=== PATIENT | male | born 1995 | race Caucasian/White ===

== ENCOUNTER 2016-10-02 15:53 | Emergency (ER) | payer SELFPAY ==
[~2016-10-02] VITALS: Wt 74.8 kg
[2016-10-02] MEDS ORDERED: VIBRAMYCIN100 MG PO (17:44)
== END 2016-10-02 19:43 | disposition home or self-care (01) ==
LOC: ED 15:53
DX: Z20.2 Contact with and (suspected) exposure to infections with a predominantly sexual mode of transmission (principal)

== ENCOUNTER 2016-10-26 16:08 | Emergency (ER) | payer SELFPAY ==
[~2016-10-26] VITALS: Wt 77.1 kg
[~2016-10-26 16:08] MED LIST: VIBRAMYCIN100 MG PO
[2016-10-26 16:27] LABS: BASO % 0.3 % (0.0-1.0); EOS # 0.3 10*3/uL (0.0-0.4); EOS % 2.2 % (1.0-4.0); HEMOGLOBIN 15.1 g/dl (14.0-18.0); LYMPH # 2.7 10*3/uL (1.3-4.4); LYMPH % 22.9 % (27.0-41.0); MEAN CORPUSCULAR HGB 30.2 pg (27.0-31.0); MEAN CORPUSCULAR HGB CONC 34.3 g/dl (33.0-37.0); MEAN PLATELET VOLUME 10.4 fl (9.6-12.3); MONO # 0.9 10*3/uL (0.1-1.0); NEUT # 7.7 10*3/uL (2.3-7.9); NEUT % 66.3 % (47.0-73.0); PLATELET COUNT AUTOMATED 257 10*3/uL (130-400); RED CELL DISTRI WIDTH 12.6 % (0-14.5); WHITE BLOOD COUNT 11.6 10*3/uL (4.8-10.8)
[2016-10-26 16:41] LABS: ALBUMIN 4.1 gm/dl (3.1-4.5); ALKALINE PHOSPHATASE 81 U/L (45-117); BILIRUBIN, TOTAL 0.3 mg/dl (0.2-1.0); BUN 12 mg/dl (7-24); CARBON DIOXIDE 29 mmol/L (21-32); CHLORIDE 107 mmol/L (98-107); EST GLOM FILT AFRICAN AMERICAN > 60 ml/min; GLUCOSE 91 mg/dL (65-99); POTASSIUM 4.6 mmol/L (3.5-5.1); SGOT/AST 16 IU/L (3-35); SGPT/ALT 24 U/L (12-78); SODIUM 143 mmol/L (136-145)
[2016-10-26] MEDS ORDERED: FLONASE ALLERG9.9 ML NS (16:54)
[2016-10-26] MEDS ORDERED: AMOXICILLIN500 M2 PO (16:54)
[2016-10-26] MEDS ORDERED: PEPCID20 MG PO (16:54)
== END 2016-10-26 17:04 | disposition home or self-care (01) ==
LOC: ED 16:08
PROVIDERS: Physician Assistant
DX: J01.00 Acute maxillary sinusitis, unspecified (principal); K29.00 Acute gastritis without bleeding